=== PATIENT | male | born 1940 | race Caucasian/White ===

== ENCOUNTER 2018-08-14 13:23 | Day surgery (SDC) | payer MEDICARE ==
[2018-08-14] VITALS (8 sets, daily range): BP systolic 128–186; BP diastolic 62–100
[~2018-08-14] VITALS: Ht 185.4 cm; Wt 125.0 kg
[~2018-08-14 13:23] MED LIST: OMEP20CA10 PO
[2018-08-14] MEDS ORDERED: diphenhydrAMINE 25mg capsule PO PRN (14:00)
[2018-08-14] MEDS ORDERED: LORazepam 0.5 MG tablet PO PRN (14:00)
[2018-08-14] MEDS ORDERED: normal saline 1,000 ML IV SCH (14:00)
[2018-08-14 14:27] LABS: BASOPHILS # (AUTO) 0.1 X10'3 (0-0.2); BASOPHILS % (AUTO) 0.6 % (0-1); EOSINOPHILS # (AUTO) 0.2 X10'3 (0-0.9); EOSINOPHILS % (AUTO) 1.7 % (0-6); HEMATOCRIT 46.6 % (42.0-52.0); HEMOGLOBIN 15.6 g/dl (14.0-17.9); LYMPHOCYTES # (AUTO) 2.7 X10'3 (1.1-4.8); LYMPHOCYTES % (AUTO) 27.6 % (21-51); MEAN CORPUSCULAR HEMOGLOBIN 29.7 PG (27.0-31.0); MEAN CORPUSCULAR HGB CONC 33.6 g/dL (33.0-36.5); MEAN CORPUSCULAR VOLUME 88.4 FL (78-98); MEAN PLATELET VOLUME 7.7 FL (7.4-10.4); MONOCYTES # (AUTO) 1.2 X10'3 (0-0.9); NEUTROPHILS # (AUTO) 5.7 X10'3 (1.8-7.7); NEUTROPHILS % (AUTO) 58.1 % (42-75); PLATELET COUNT 219 X10'3 (140-440); RED BLOOD COUNT 5.27 X10'6 (4.70-6.10); RED CELL DISTRIBUTION WIDTH 14.6 % (11.5-14.5); WHITE BLOOD COUNT 9.8 X10'3 (4.5-11.0)
[2018-08-14 14:36] LABS: ANION GAP 7 (8-16); BLOOD UREA NITROGEN 14 MG/DL (7-18); BUN/CREATININE RATIO 11.5 (5.4-32.0); CALCIUM 9.6 MG/DL (8.5-10.1); CHLORIDE 102 MMOL/L (99-107); CREATININE 1.22 MG/DL (0.60-1.10); GLUCOSE 115 MG/DL (70-104); POTASSIUM 3.4 MMOL/L (3.5-5.1); SODIUM 139 MMOL/L (135-145); eGFR 57 ML/MIN
[2018-08-14 14:45] LABS: PARTIAL THROMBOPLASTIN TIME 27 SECONDS (22-32)
[2018-08-14] MEDS ORDERED: CLOP75TA15 PO (15:12)
[2018-08-14] MEDS ORDERED: ASPI-611 PO (15:12)
[2018-08-14] MEDS ORDERED: ATOR10TA70 PO (15:12)
[2018-08-14] MEDS ORDERED: BENA20TA2 PO (15:12)
[2018-08-14] MEDS ORDERED: PROP1TAB PO (15:12)
[2018-08-14] MEDS ORDERED: ALLO300T2 PO (15:12)
[2018-08-14] MEDS ORDERED: CYA500T PO (15:12)
[2018-08-14] MEDS ORDERED: GABA800T11 PO (15:12)
[2018-08-14] MEDS ORDERED: AMLO10TA PO (15:12)
[2018-08-14] MEDS ORDERED: phenylephrine 10mg/ml inj. ONE (20:08)
[2018-08-14] MEDS ORDERED: DOPamine 400mg/D5W 250ml 250 ML IV ONE (20:08)
[2018-08-14] MEDS ORDERED: heparin 1,000unit/ml 10ml vial 10 ML ONE (20:08)
[2018-08-14] MEDS ORDERED: atropine 0.1mg/ml 10ml syringe ONE (20:08)
[2018-08-14] MEDS ORDERED: iohexol 350MG/ML 100ml bottle IV ONE (20:09)
[2018-08-14] MEDS ORDERED: iohexol 350 MG/ML 50ML vial IV ONE (20:09)
[2018-08-14] MEDS ORDERED: LIDOcaine 1% (10mg/ml)w/preservative injection 20ml MDV ONE (20:25)
--- NOTE | 2018-08-14 20:55 | NUR ---
received report from boat laborer, no stent placed, pt will DC [facility]ad at 2200. rt groin site with perclose in place, no hematoma per boat laborer RN.
--- NOTE | 2018-08-14 21:00 | NUR ---
pt arrived via gurney from [facility], in stable condition, VSS, rt groin site dressing CDI, no hematoma present. pt to DC tonight at 2200 if stable.
[2018-08-14] MEDS ORDERED: acetaminophen 325mg tablet PO PRN (21:50)
[2018-08-14] MEDS ORDERED: HYDROcodone/acetaminophen 5mg/325mg tablet PO PRN (21:50)
[2018-08-14] MEDS ORDERED: HYDROcodone/acetaminophen 10/325mg tab PO PRN (21:50)
[2018-08-14] MEDS ORDERED: proCHLORperazine 10 MG/2 ml inj IV PRN (21:50)
[2018-08-14] MEDS ORDERED: ondansetron/PF 4mg/2ml inj IV PRN (21:50)
--- NOTE | 2018-08-14 22:50 | NUR ---
pt DC'd from unit via WC, left in stable condition with all belongings. PIV removed. groin site checked one last time- no hematoma present. all DC paperwork gone over with pt and educated on post cath care. pt DC'd to home, left via private vehicle driven by his .
== END 2018-08-14 23:00 | disposition home or self-care (01) ==
LOC: SSTAY O 13:23 → MED 3N 21:20 → SSTAY O 23:00
PROVIDERS: ATTEND Internal Medicine Interventional Cardiology
DX: I65.22 Occlusion and stenosis of left carotid artery (principal); I70.0 Atherosclerosis of aorta; G47.33 Obstructive sleep apnea (adult) (pediatric); I10 Essential (primary) hypertension; E78.00 Pure hypercholesterolemia, unspecified; Z86.73 Personal history of transient ischemic attack (TIA), and cerebral infarction without residual deficits
CPT/HCPCS: 36222; 36415; 80048; 85025; 85610; 85730; 93005; A6257; J0461; J1265; J1644; J2001; J2370; J7030; Q0163; Q9967; 36224; A4620; C1760; C1769; C1894; G0378

== ENCOUNTER 2019-02-27 13:27 | Day surgery (SDC) | payer MEDICARE ==
[2019-02-22 11:13] LABS: BASOPHILS % (AUTO) 0.5 % (0-1); EOSINOPHILS # (AUTO) 0.2 X10'3 (0-0.9); EOSINOPHILS % (AUTO) 1.8 % (0-6); LYMPHOCYTES # (AUTO) 2.7 X10'3 (1.1-4.8); LYMPHOCYTES % (AUTO) 27.7 % (21-51); MEAN CORPUSCULAR HEMOGLOBIN 29.5 PG (27.0-31.0); MEAN CORPUSCULAR HGB CONC 33.2 g/dL (33.0-36.5); MEAN CORPUSCULAR VOLUME 88.8 FL (78-98); MEAN PLATELET VOLUME 7.3 FL (7.4-10.4); MONOCYTES # (AUTO) 0.8 X10'3 (0-0.9); MONOCYTES % (AUTO) 8.8 % (2-12); NEUTROPHILS # (AUTO) 5.9 X10'3 (1.8-7.7); NEUTROPHILS % (AUTO) 61.2 % (42-75); PRE OP HEMATOCRIT 44.9 % (42.0-52.0); PRE OP HEMOGLOBIN 14.9 g/dL (14.0-17.9); PRE OP PLATELET COUNT 202 X10'3 (140-440); RED BLOOD COUNT 5.05 X10'6 (4.70-6.10); RED CELL DISTRIBUTION WIDTH 15.4 % (11.5-14.5)
[2019-02-22 11:23] LABS: ALBUMIN 3.6 G/DL (3.4-5.0); BLOOD UREA NITROGEN 19 MG/DL (7-18); BUN/CREATININE RATIO 14.2 (5.4-32.0); CALCIUM 9.2 MG/DL (8.5-10.1); CHLORIDE 102 MMOL/L (99-107); CREATININE 1.34 MG/DL (0.60-1.10); PRE OP ANION GAP 6 (8-16); PRE OP GLUCOSE 139 MG/DL (70-104); PRE OP POTASSIUM 3.6 MMOL/L (3.4-5.1); PRE OP SODIUM 140 MMOL/L (135-145); TOTAL CARBON DIOXIDE 31.6 MMOL/L (24-32); eGFR 51 ML/MIN
[2019-02-22 11:25] LABS: PRE OP PROTIME 10.3 SECONDS (9.0-12.0)
[~2019-02-27] VITALS: Ht 182.9 cm; Wt 121.5 kg
[~2019-02-27 13:27] MED LIST changes: +ALLO300T2 PO; +AMLO10TA PO; +ASPI-10 PO; +ATOR10TA70 PO; +BENA20TA2 PO; +CLOP75TA15 PO; +CYAN500T63 PO; +GABA800T11 PO; -OMEP20CA10 PO; +OMEP40CA13 PO; +PROP1TAB PO; +tamsulosin capsule PO
[2019-02-27] MEDS ORDERED: normal saline 1,000 ML IV SCH (13:50)
[2019-02-27] MEDS ORDERED: LORazepam 0.5 MG tablet PO PRN (13:50)
[2019-02-27] MEDS ORDERED: diphenhydrAMINE 25mg capsule PO PRN (13:50)
[2019-02-27 13:53] VITALS: BP 155/85
[2019-02-27] MEDS ORDERED: FLO0.4C PO (14:55)
[2019-02-27] MEDS ORDERED: OMEP-297 PO (14:55)
[2019-02-27] MEDS ORDERED: ASPI-611 PO (14:55)
[2019-02-27] MEDS ORDERED: iohexol 350MG/ML 100ml bottle IV ONE (16:18)
[2019-02-27] MEDS ORDERED: LIDOcaine 1% (10mg/ml)w/preservative injection 20ml MDV ONE (16:18)
[2019-02-27] MEDS ORDERED: heparin 1,000unit/ml 10ml vial 10 ML ONE (16:18)
[2019-02-27] MEDS ORDERED: iohexol 350 MG/ML 50ML vial IV ONE (16:18)
[2019-02-27] MEDS ORDERED: phenylephrine 10mg/ml inj. ONE (16:32)
[2019-02-27] MEDS ORDERED: atropine 0.1mg/ml 10ml syringe ONE (16:32)
[2019-02-27] MEDS ORDERED: DOPamine 400mg/D5W 250ml 250 ML IV ONE (16:37)
[2019-02-27 17:45] VITALS: BP 136/82
[2019-02-27] MEDS ORDERED: OXAZEpam 15mg capsule PO PRN (17:55)
[2019-02-27] MEDS ORDERED: proCHLORperazine 10 MG/2 ml inj IV PRN (17:55)
[2019-02-27] MEDS ORDERED: ondansetron/PF 4mg/2ml inj IV PRN (17:55)
[2019-02-27] MEDS ORDERED: HYDROcodone/acetaminophen 5mg/325mg tablet PO PRN (17:55)
[2019-02-27] MEDS ORDERED: HYDROcodone/acetaminophen 10/325mg tab PO PRN (17:55)
[2019-02-27 18:00] VITALS: BP 145/69
[2019-02-27 18:15] VITALS: BP 146/48
[2019-02-27 18:30] VITALS: BP 156/73
[2019-02-27 19:00] VITALS: BP 150/80
== END 2019-02-27 19:30 | disposition home or self-care (01) ==
LOC: SSTAY O 13:27
PROVIDERS: ATTEND Internal Medicine Interventional Cardiology
DX: I65.21 Occlusion and stenosis of right carotid artery (principal); G47.33 Obstructive sleep apnea (adult) (pediatric); E11.9 Type 2 diabetes mellitus without complications; I10 Essential (primary) hypertension; E78.5 Hyperlipidemia, unspecified; E53.8 Deficiency of other specified B group vitamins; Z79.899 Other long term (current) drug therapy; Z79.82 Long term (current) use of aspirin; Z86.73 Personal history of transient ischemic attack (TIA), and cerebral infarction without residual deficits
CPT/HCPCS: 36222; 36415; 80048; 85025; 85610; 85730; 93005; C1769; J0461; J1265; J1644; J2001; J2370; J7030; Q0163; Q9967; A4620; A6258; C1760

== ENCOUNTER 2022-11-08 12:01 | Day surgery (SDC) | payer MEDICARE ==
[2022-11-08] VITALS (8 sets, daily range): BP systolic 98–127; BP diastolic 55–78
[~2022-11-08] VITALS: Ht 185.4 cm; Wt 110.1 kg
[~2022-11-08 12:01] MED LIST changes: -ALLO300T2 PO; +ALLO300T8 PO; -AMLO10TA PO; +APIX5TAB3 PO; -ASPI-10 PO; -ATOR10TA70 PO; +ATOR40TA72 PO; -BENA20TA2 PO; -CLOP75TA15 PO; -CYAN500T63 PO; +EMPA10TA PO; +ENOX40SY7 SUBCUT; +LASIX IVP; +METO-395 PO; +OMEP20CA16 PO; -OMEP40CA13 PO; -PROP1TAB PO; +SACU1TAB7 PO; +SPIR25TA5 PO; -tamsulosin capsule PO
[2022-11-08] MEDS ORDERED: normal saline 1,000 ML IV SCH (12:25)
[2022-11-08] MEDS ORDERED: LORazepam 0.5 MG tablet PO PRN (12:25)
[2022-11-08] MEDS ORDERED: insulin Lispro (HumaLOG) vial - multi-dose SQ SCH (12:30)
[2022-11-08] MEDS ORDERED: glucagon, human recombinant 1mg kit SUBCUT PRN (12:30)
[2022-11-08] MEDS ORDERED: DEXTROSE 15 GM of carb/4 tabs (each vial/BOTTLE has 4 tablets) PO PRN ×2 (12:30)
[2022-11-08] MEDS ORDERED: dextrose 50%-water 50ml dispensing syringe IV PRN ×2 (12:30)
[2022-11-08] MEDS ORDERED: POTA-207 PO (13:42)
[2022-11-08] MEDS ORDERED: iohexol 350MG/ML 100ml bottle IV ONE (14:29)
[2022-11-08] MEDS ORDERED: LIDOcaine 1% 30ml preserv. free vial ONE (14:29)
[2022-11-08] MEDS ORDERED: fentaNYL/PF 50MCG/1 ML 2ML syringe ONE (14:29)
[2022-11-08] MEDS ORDERED: midazolam 1 mg/ML 2ml injection ONE (14:29)
[2022-11-08 15:04] LABS: BASOPHILS % (AUTO) 0.3 % (0-1); EOSINOPHILS # (AUTO) 0.1 X10'3 (0-0.9); EOSINOPHILS % (AUTO) 1.1 % (0-6); HEMATOCRIT 43.3 % (42.0-52.0); HEMOGLOBIN 13.8 g/dl (14.0-17.9); LYMPHOCYTES # (AUTO) 1.7 X10'3 (1.1-4.8); LYMPHOCYTES % (AUTO) 25.1 % (21-51); MEAN CORPUSCULAR HEMOGLOBIN 27.7 PG (27.0-31.0); MEAN CORPUSCULAR HGB CONC 31.9 g/dL (33.0-36.5); MEAN CORPUSCULAR VOLUME 86.8 FL (78-98); MEAN PLATELET VOLUME 7.6 FL (7.4-10.4); MONOCYTES # (AUTO) 0.8 X10'3 (0-0.9); MONOCYTES % (AUTO) 12.1 % (2-12); NEUTROPHILS % (AUTO) 61.4 % (42-75); PLATELET COUNT 161 X10'3 (140-440); RED BLOOD COUNT 4.99 X10'6 (4.70-6.10); RED CELL DISTRIBUTION WIDTH 22.6 % (11.5-14.5); WHITE BLOOD COUNT 6.6 X10'3 (4.5-11.0)
[2022-11-08 15:12] LABS: ALBUMIN 3.5 G/DL (3.4-5.0); ANION GAP 7 (8-16); BLOOD UREA NITROGEN 28 MG/DL (7-18); BUN/CREATININE RATIO 21.7 (10.0-20.0); CALCIUM 9.4 MG/DL (8.5-10.1); CHLORIDE 105 MMOL/L (99-107); CREATININE 1.29 MG/DL (0.60-1.10); GLUCOSE 97 MG/DL (70-104); POTASSIUM 4.2 MMOL/L (3.5-5.1); SODIUM 140 MMOL/L (135-145); TOTAL CARBON DIOXIDE 28.3 MMOL/L (24-32); eGFR 53 ML/MIN
[2022-11-08] MEDS ORDERED: HYDROcodone/acetaminophen 5mg/325mg tablet PO PRN (16:20)
[2022-11-08] MEDS ORDERED: HYDROcodone/acetaminophen 10/325mg tab PO PRN (16:20)
[2022-11-08 17:15] LABS: PLATELET ESTIMATE NORMAL
[2022-11-08 17:16] LABS: ANISOCYTOSIS 3+; POIKILOCYTOSIS 1+
[2022-11-08] MEDS ORDERED: insulin glargine (Lantus) pen - multi-dose SQ SCH (21:00)
[2022-11-09 06:32] LABS: ISTAT Hct MIX 42 %PCV (42-52); ISTAT O2 SATURATION MIX VENOUS 63 % (60-80); ISTAT SOURCE VEN
== END 2022-11-08 18:20 | disposition home or self-care (01) ==
LOC: SSTAY O 12:01
PROVIDERS: ATTEND Student in an Organized Health Care Education/Training Program
DX: I11.0 Hypertensive heart disease with heart failure (principal); I50.9 Heart failure, unspecified; G47.33 Obstructive sleep apnea (adult) (pediatric); E78.5 Hyperlipidemia, unspecified; E53.8 Deficiency of other specified B group vitamins; E11.9 Type 2 diabetes mellitus without complications; Z79.01 Long term (current) use of anticoagulants; Z79.899 Other long term (current) drug therapy
CPT/HCPCS: 33289; 36415; 76937; 80048; 82803; 82948; 85014; 85025; 93005; 99152; 99153; C2624; J1644; J2250; J3010; J3490; J7030; Q9967; 85008; A4615; A6258; C1751; C1769; C1894; J1815

== ENCOUNTER 2022-11-25 11:46 | Emergency (ER) | payer MEDICARE ==
[~2022-11-25] VITALS: Ht 185.4 cm; Wt 110.5 kg
[~2022-11-25 11:46] MED LIST changes: -ENOX40SY7 SUBCUT; +POTA-207 PO
[2022-11-25 11:52] VITALS: TEMP 98.2
--- NOTE | 2022-11-25 11:55 | NUR ---
DR. PADRON'S OFFICE NOTIFIED OF PATIENT'S PRESENCE IN THE ER WITH C/O HEMATOMA AT INSERTION SITE.
[2022-11-25] MEDS ORDERED: ALLO100T PO (12:08)
[2022-11-25] MEDS ORDERED: ATOR40TA PO (12:08)
[2022-11-25] MEDS ORDERED: APIX5TAB3 PO (12:11)
[2022-11-25] MEDS ORDERED: EMPA10TA PO (12:11)
[2022-11-25] MEDS ORDERED: FURO-149 PO (12:11)
[2022-11-25] MEDS ORDERED: SPIR25TA5 PO (12:11)
[2022-11-25] MEDS ORDERED: OMEP40CA21 PO (12:11)
[2022-11-25] MEDS ORDERED: LOP25T PO (12:11)
[2022-11-25] MEDS ORDERED: GABA800T11 PO (12:11)
[2022-11-25] MEDS ORDERED: SACU1TAB7 PO (12:11)
[2022-11-25 12:20] LABS: BASOPHILS % (AUTO) 0.4 % (0-1); EOSINOPHILS # (AUTO) 0.1 X10'3 (0-0.9); EOSINOPHILS % (AUTO) 0.6 % (0-6); HEMATOCRIT 44.1 % (42.0-52.0); HEMOGLOBIN 14.4 g/dl (14.0-17.9); LYMPHOCYTES # (AUTO) 1.8 X10'3 (1.1-4.8); MEAN CORPUSCULAR HEMOGLOBIN 28.8 PG (27.0-31.0); MEAN CORPUSCULAR HGB CONC 32.5 g/dL (33.0-36.5); MEAN CORPUSCULAR VOLUME 88.6 FL (78-98); MEAN PLATELET VOLUME 7.1 FL (7.4-10.4); MONOCYTES % (AUTO) 10.6 % (2-12); NEUTROPHILS # (AUTO) 6.7 X10'3 (1.8-7.7); NEUTROPHILS % (AUTO) 69.4 % (42-75); PLATELET COUNT 187 X10'3 (140-440); RED BLOOD COUNT 4.98 X10'6 (4.70-6.10); RED CELL DISTRIBUTION WIDTH 21.2 % (11.5-14.5); WHITE BLOOD COUNT 9.6 X10'3 (4.5-11.0)
[2022-11-25 12:36] LABS: APTT 31 SECONDS (22-32)
[2022-11-25 12:37] LABS: ANISOCYTOSIS 3+; ELLIPTOCYTES FEW; PLATELET ESTIMATE NORMAL
[2022-11-25 12:39] LABS: ALANINE AMINOTRANSFERASE 14 U/L (12-78); ALBUMIN 3.6 G/DL (3.4-5.0); ALBUMIN/GLOBULIN RATIO 0.9 (1.1-1.5); ALKALINE PHOSPHATASE 114 IU/L (46-116); ANION GAP 8 (8-16); ASPARTATE AMINO TRANSFERASE 16 U/L (10-37); BILIRUBIN,TOTAL 0.7 MG/DL (0.1-1.0); BLOOD UREA NITROGEN 33 MG/DL (7-18); BUN/CREATININE RATIO 23.2 (10.0-20.0); CALCIUM 9.5 MG/DL (8.5-10.1); CHLORIDE 104 MMOL/L (99-107); CREATININE 1.42 MG/DL (0.60-1.10); GLUCOSE 129 MG/DL (70-104); POTASSIUM 4.6 MMOL/L (3.5-5.1); SODIUM 138 MMOL/L (135-145); TOTAL CARBON DIOXIDE 25.9 MMOL/L (24-32); TOTAL PROTEIN 7.5 G/DL (6.4-8.2); eGFR 47 ML/MIN
[2022-11-25 15:45] VITALS: BP 110/78; PULSE 70; RESP 19; O2SAT 94
== END 2022-11-25 16:39 | disposition home or self-care (01) ==
LOC: MERGE 11:48 → ER 11:48 → EDBD 11:48 → ER 16:39
DX: T82.897A Other specified complication of cardiac prosthetic devices, implants and grafts, initial encounter (principal); I48.91 Unspecified atrial fibrillation; Z79.899 Other long term (current) drug therapy; Y83.8 Other surgical procedures as the cause of abnormal reaction of the patient, or of later complication, without mention of misadventure at the time of the procedure; Y71.3 Surgical instruments, materials and cardiovascular devices (including sutures) associated with adverse incidents; Y92.89 Other specified places as the place of occurrence of the external cause
CPT/HCPCS: 36415; 71045; 71250; 80053; 84484; 85008; 85025; 85610; 85730; 93005; 99285; A6258; A6449